=== PATIENT | female | born 1980 | race Caucasian/White ===

== ENCOUNTER 2017-04-18 07:50 | Emergency (ER) | payer OTHER ==
[~2017-04-18] VITALS: Ht 157.5 cm; Wt 90.0 kg
[~2017-04-18 07:50] MED LIST: CLINDAMYCIN150 MG PO; NO; ULTRAM50 MG PO
[2017-04-18] MEDS ORDERED: AMLODIPINE5 MG PO (08:39)
[2017-04-18] MEDS ORDERED: PERCOCET 5/321 COMBO PO (08:39)
[2017-04-18] MEDS ORDERED: CLINDAMYCIN300 M1 PO (08:39)
[2017-04-18 08:57] LABS: ANION GAP 15 (6-22 (CALC)); BUN 3 mg/dL (7-17); BUN/CREATININE RATIO 5 (12-20 (CALC)); CALCIUM 9.6 mg/dL (8.4-10.2); CARBON DIOXIDE 26 mmol/l (22-30); CHLORIDE 106 mmol/l (95-108); CREATININE 0.7 mg/dL (0.5-1.0); GFR > 60 ML/MIN (>=60 (CALC)); GFR FOR AFR.AMER. > 60 ML/MIN (>=60 (CALC)); GLUCOSE 89 mg/dL (65-105); POTASSIUM 4.1 mmol/l (3.5-5.1); SODIUM 142 mmol/l (137-146)
[2017-04-18 09:15] VITALS: BP 151/84
== END 2017-04-18 09:15 | disposition home or self-care (01) | DRG 159 ==
LOC: ED 07:50
PROVIDERS: Emergency Medicine
DX: K02.9 Dental caries, unspecified (principal); F17.210 Nicotine dependence, cigarettes, uncomplicated; K03.81 Cracked tooth; R03.0 Elevated blood-pressure reading, without diagnosis of hypertension